=== PATIENT | male | born 1950 | race Caucasian/White ===

== ENCOUNTER → 2016-11-05 | Day surgery (SDC) | payer OTHER ==
[~2016-11-05] VITALS: Ht 182.9 cm; Wt 113.4 kg
[~2016-11-05] MED LIST: 0.9% Sodium Chloride 1,000 ML IV SCH; AMLO-39 PO; LOV40 SQ; PROT40T PO; Sodium Chloride LOK Flush 10 mL Syringe IV PRN; VIC5 PO; VIS25 PO; fentaNYL-PF 50 mCg/mL 2 mL Inj IVPUSH PRN
[2016-11-05 07:56] VITALS: BP 125/82; PULSE 52; RESP 14; O2SAT 97
--- NOTE | 2016-11-05 08:55 | PCM.ENDEGD ---
EGD Date of Service: Nov 05, 2016 Physician Dmitriy Howard MD Pre Procedure Diagnosis: Abdominal pain Post Procedure Dx & Findings: Antral deformity gastropathy fundic polyps Procedure Esophagogastroduodenoscopy PROCEDURE IN DETAIL: After proper sedation, Olympus video endoscope was inserted into patient's mouth and esophagus was successfully intubated. Scope introduced esophagus. Esophagus showed normal shiny whitish mucosa consistent with squamous cell component. Z line was intact at 40 cm from the incisors. Scope further advanced to the stomach. Patient had several fundic polyps proximal to mid body of the stomach. The largest was about a centimeter. Sampling biopsies on especially on the largest ones. There was some evidence of antral edema and slight deformity. Then there was some area of redness consistent with gastropathy. Biopsies obtained from the antrum and more proximal stomach body. Cardia fundus body antrum pylorus were all visualized. Retroflexion was done. Stomach was easily inflated and deflatable using air. Scope further events to the distal duodenum. Duodenum revealed normal villous structures with normal appearing folds without any mass ulcer erosion. 5 biopsies obtained for celiac disease. Impression Gastropathy Fundic polyps Recommendation Follow up in GI clinic Presedation Assessment Risks and Benefits Informed consent was obtained from the patient after all risks and benefits including but not limited to drug reaction, infection, pain, bleeding, perforation, as well as alternatives were discussed. Patient monitoring Continuous pulse oximetry, cardiac monitoring, blood pressure monitoring, IV access, and oxygen at 2L per nasal cannula. Periprocedural Fentanyl: Fentanyl 100mcg Incrementally Midazolam: Midazolam 5mg Incrementally Complications There were no periprocedural complications identified. Post Procedure Plan Post Procedure Recommendations 1. Restrict activities today. 2. Resume normal activities in the morning. 3. Resume medications. 4. GERD behavioral modification: - Avoid fatty, acidic, spicy, large meals - Do not lie down after meals - Do not eat or drink anything for at least 2 1/2 hours before going to bed at night - Discontinue tobacco and alcohol - Decrease or avoid caffeine - Avoid chocolate and mints - Decrease weight - Avoid aspirin and non steroidal anti-inflammatory agents (NSAID) such as Aleve, Advil, Mobic, Naproxen, Ibuprofen, etc 5. Add proton pump inhibitor. Take 30 minutes before 1st meal of the day. 6. Patient informed of normal post procedure side effects as bloating, drowsiness, blood streaking in the stool 7. If gastric biopsy reveal H.pylori, continue with appropriate treatment 8. If small bowel biopsy reveals celiac, continue with appropriate treatment 9. Please don't hesitate to call me with any questions Dmitriy Howard MD Nov 05, 2016 08:55
[2016-11-05 08:59] VITALS: BP 110/73; PULSE 50; RESP 12; O2SAT 97
[2016-11-05 09:11] VITALS: BP 118/78; PULSE 54; RESP 12; O2SAT 99
[2016-11-05 09:12] VITALS: BP 120/77; PULSE 54; RESP 12; O2SAT 100
--- NOTE | 2016-11-11 09:19 | PATH ---
SURGICAL PATHOLOGY Attending Physician:Dmitriy Howard M.D. CASE STATUS: Signed Out PATIENT NAME: PAULA ALMODOVAR PID: [id number] : 1950 DATE COLLECTED:11/05/2016 00:00 SPECIMEN: 1: Duodenum, Biopsy 2: Stomach, Antrum, Biopsy 3: Stomach, Polyp, Biopsy CLINICAL HISTORY: 1). RANDOM DUODENAL BIOPSY 2). ANTRUM BIOPSY 3). GASTRIC POLYP BIOPSY FINAL DIAGNOSIS: 1. Random Duodenal Biopsy: Superficial portions of duodenal mucosa with focal mucosal erosion and no diagnostic abnormality. Negative for active inflammation, features of sprue, dysplasia, and malignancy. 2. Antrum, Biopsy: Superficial portions of gastric antral mucosa with mild chronic gastritis. Negative for H. pylori organisms by H&E stains and immunohistochemistry studies. Negative for intestinal metaplasia, dysplasia, and malignancy. 3. Gastric Polyp, Biopsy: Portions of fundic gland polyp x2. Negative for dysplasia and malignancy. ICD10: K29.7 GROSS DESCRIPTION: The specimen is received in three formalin filled containers labeled with the patient's name. 1). The specimen is labeled "duod" and consists of 3 portions of tissue which aggregate to 0.3 x 0.2 x 0.2 CM. The specimen is entirely submitted in cassettes 1A. 2). The specimen is labeled "antrum" and consists of 3 tiny portions of tissue which aggregate to 0.3 x 0.3 x 0.2 CM. The specimen is entirely submitted in cassette 2A. 3). The specimen is labeled "gastric polyp" and consists of 2 portions of tissue which aggregate to 0.3 x 0.2 x 0.2 CM. The specimen is entirely submitted in cassette 3A. 11/06/2016DC MICRO DESCRIPTION: 2. An immunohistochemical stain was performed to evaluate for Helicobacter organisms and is negative. A control stain showed appropriate reactivity. This test was developed and its performance characteristics determined by [facility]. It has not been cleared or approved by the [place] Food and Drug Administration. The FDA has determined that such clearance or approval is not necessary. This test is used for clinical purposes. It should not be regarded as investigational or for research. ICD-9 CODES: CPT CODES: 1: 15765 2: 44050, 89488 3: 79223 Electronically Signed Out MD [facility] [address], [place] [address] Technical component performed at [facility], [address], [place], [address]
== END | disposition home or self-care (01) ==
LOC: END 00:39
PROVIDERS: ATTEND Internal Medicine
DX: K29.50 Unspecified chronic gastritis without bleeding (principal); K31.9 Disease of stomach and duodenum, unspecified; K31.7 Polyp of stomach and duodenum; R10.9 Unspecified abdominal pain; I10 Essential (primary) hypertension; K21.9 Gastro-esophageal reflux disease without esophagitis
CPT/HCPCS: 36415; 43239; 83690; 99153; G0500; J2250; J3010; J7030